=== PATIENT | male | born 1950 | race Two or more races ===

== ENCOUNTER 2016-06-15 10:53 | Emergency (ER) | payer MEDICARE ==
[2016-06-15 11:39] LABS: ABSOLUTE NEUTROPHIL COUNT 6.7 K/mm3 (1.8-7.7); BASO # 0.1 K/mm3 (0.0-0.2); BASO % 0.7 % (0.2-1.0); EOS # 0.1 (0.0-0.5); HEMATOCRIT 49.1 % (32.0-52.0); HEMOGLOBIN 15.8 gm/l (14.0-18.0); IMM NEUT # 0.1 K/mm3 (0-0.2); IMM NEUT% 0.8 % (0-1); LYMPH # 1.3 (1.0-4.8); MEAN CELL VOLUME 92.1 fl (80.0-94.0); MEAN CORPUSCULAR HEMOGLOBIN 29.6 pg (27.0-31.0); MEAN CORPUSCULAR HGB CONC 32.2 g/dl (33.0-37.0); MEAN PLATELET VOLUME 10.3 fl (7.4-10.4); MONO % 10.9 % (4-12); NEUT % 72.6 % (43-75); PLATELET COUNT 239 K/mm3 (130-400)
[2016-06-15] MEDS ORDERED: DILTIAZEM HCL 5 MG/ML 5ML VIAL IV ONE (11:52)
[2016-06-15 11:56] LABS: ALB/GLOB RATIO 1.2 (>1.0); ALBUMIN 4.2 gm/dL (3.5-5.7); CALCIUM 9.6 mg/dL (8.6-10.3)
[2016-06-15 12:00] LABS: TROPONIN I < 0.01 ng/ml (0.0-0.06)
[2016-06-15 12:03] LABS: CKMB ISOENZYME 1.9 ng/ml (0.6-6.3)
[2016-06-15] MEDS ORDERED: METOPROLOL TARTRATE 50 MG TABLET ONE (13:27)
[2016-06-15] MEDS ORDERED: DIAZEPAM 5 MG TABLET ONE (14:16)
[2016-06-15] MEDS ORDERED: HYDROCODONE/ACETAMINOPHEN 5/325MG TABLET ONE (14:16)
[2016-06-15] MEDS ORDERED: SODIUM CHLORIDE 0.9% 1,000 ML ONE (15:11)
[2016-06-15 16:25] LABS: INR 2.02; PROTHROMBIN TIME 22.1 SECONDS (9.3-11.4)
[2016-06-15] MEDS ORDERED: SODIUM CHLORIDE 0.9% 0 ML ONE (16:26)
[2016-06-15] MEDS ORDERED: ETOMIDATE 2 MG/ML 10ML VIAL IV ONE (16:26)
== END 2016-06-15 17:29 | disposition home or self-care (01) ==
LOC: ED 10:53
DX: I48.91 Unspecified atrial fibrillation (principal); R07.9 Chest pain, unspecified; J44.9 Chronic obstructive pulmonary disease, unspecified; I25.2 Old myocardial infarction; E11.9 Type 2 diabetes mellitus without complications; Z79.84 Long term (current) use of oral hypoglycemic drugs; Z79.01 Long term (current) use of anticoagulants
CPT/HCPCS: 83880; 85025; 82553; 80053; 85610; 84484; 96375; 99285; 92960 ×2; 96374; 96361 ×2; 93005; 99284; A9270 ×3; J7030